=== PATIENT | male | born 1955 | race Caucasian/White ===

== ENCOUNTER 2016-08-27 09:27 | Emergency (ER) | payer OTHER ==
[2016-08-27] MEDS ORDERED: IPRATROPIUM/ALBUTEROL 0.5-2.5 MG/3 ML AMPUL NEB ONE (10:00)
[2016-08-27] MEDS ORDERED: NORMAL SALINE 1000 ML 1,000 ML IV ONE (10:04)
--- NOTE | 2016-08-27 10:07 | ER Document Report ---
ED Dizziness/Weakness - General Chief Complaint: General Weakness Stated Complaint: WEAKNESS Mode of Arrival: Medic Information source: Patient TRAVEL OUTSIDE OF THE U.S. IN LAST 30 DAYS: No - HPI Onset: Yesterday Associated symptoms: Diarrhea, Dizzy, Fainted, Lightheaded, Nausea, Recent fall , Recent trauma, Vomiting. denies: Chest pain, Confused, Ear pain, Headache, Hearing loss, Loss of motor function, Loss of strength, Loss of sensation, Palpitations, Paralysis, Ringing/roaring in ear, Short of breath Notes: Patient arrives with complaints of nausea vomiting diarrhea which started 3 days ago. States that he had fever and chills with this. On Saturday he had 2 syncopal episodes while going to the bathroom. On one of these episodes he fell and hit his right side/chest on the sink. He denies any head injury. He denies being on blood thinners. States that the nausea vomiting diarrhea have resolved, but he continues to feel generally weak and has pain to the right chest and right abdomen/flank. He denies any unilateral numbness tingling or weakness. He denies any headache. He denies any rash. The patient denies any history of A. fib. He has a history of COPD and hypertension. Patient is on amlodipine as well as inhalers. - Related Data Allergies/Adverse Reactions: erythromycin base Adverse Reaction (Verified 08/27/16 10:20) Horse/Equine Containing Products Adverse Reaction (Verified 08/27/16 09:48) Home Medications: Current Home Medications Albuterol Sulfate [Proventil Sr 4 mg Tablet] 4 mg PO Q12H 08/27/16 [History] Amlodipine Besylate 5 mg PO DAILY 08/27/16 [History] Fluticasone/Salmeterol [Advair 250-50 Diskus 14 Dose/Diskus] 1 inh IH Q12H 08/27 [History] Past Medical History - Social History Smoking Status: Unknown if Ever Smoked Family History: Reviewed & Not Pertinent Review of Systems - Review of Systems -: Yes All other systems reviewed and negative Physical Exam - Vital signs Vitals: Resp 20 08/27/16 09:45 - General General appearance: Appears well. No: Anxious, Lethargic, Unresponsive - HEENT Head: Normocephalic Eyes: Normal Extraocular movements intact: Yes Pupils: PERRL Ears: Normal Mucous membranes: Dry Neck: Normal - Respiratory Respiratory status: No respiratory distress Chest status: Tender - Right posterior chest wall. No crepitus, no full chest. Breath sounds: Wheezing. No: Rhonchi, Stridor - Cardiovascular Rhythm: Irregularly irregular, Tachycardia Heart sounds: Normal auscultation Murmur: No - Abdominal Distension: No distension Bowel sounds: Normal Notes: Patient is noted to have tenderness to palpation of the right upper quadrant and right flank. He is noted to have ecchymosis to this area. No crepitus. - Back Back: Normal - Extremities General upper extremity: Normal inspection, Nontender, Normal color, Normal ROM , Normal temperature General lower extremity: Normal inspection, Nontender, Normal color, Normal ROM , Normal temperature, Normal weight bearing. No: Renny's sign - Neurological Neuro grossly intact: Yes Cognition: Normal Orientation: AAOx4 [place] Coma Scale Eye Opening: Spontaneous [place] Coma Scale Verbal: Oriented [place] Coma Scale Motor: Obeys Commands [place] Coma Scale Total: 15 Speech: Normal Cranial nerves: Normal Motor strength normal: LUE, RUE, LLE, RLE Sensory: Normal - Psychological Associated symptoms: Normal affect, Normal mood - Skin Skin Temperature: Warm Skin Moisture: Dry Skin Color: Normal Course - Re-evaluation Re-evalutation: 08/27/16 12:24 Patient remained stable at this time. Patient did have an elevated white blood cell count as well as creatinine. Elevated creatinine is likely secondary to dehydration secondary to his nausea vomiting diarrhea. Patient had a syncopal episode 2 days ago and is now noted to have a potential pulmonary contusion to the right lung. This is the area with ecchymosis and tenderness. No rib fracture seen. CT of the abdomen and pelvis is unremarkable. I initially discussed the case with Dr. Strauss, the hospitalist here at [facility], he recommends transfer for trauma evaluation. I discussed the case with Dr. Downs at [facility], she accepts the patient as a transfer to their facility. Patient remains stable at this time. He is noted to still be in A. fib with a heart rate of 110. His blood pressure is stable at this time. Due to the potential pulmonary contusion, the patient was obviously not anticoagulated at this time. Patient was given IV fluids and pain medication in the ED and will be transferred for further evaluation and management. The patient is noted to have elevated blood pressure during today's emergency department visit. The patient was informed of this finding. The patient was instructed that this may be related to pre-hypertension and requires further evaluation with a primary care provider. The patient has no hypertensive symptoms at this time. - Vital Signs Vital signs: Temp Pulse Resp BP Pulse Ox 26 H 124/82 94 08/27/16 10:00 08/27/16 09:48 08/27/16 10:00 - Laboratory Result Diagrams: 08/27/16 09:55 08/27/16 09:55 Laboratory results interpreted by me: 08/27/16 08/27/16 08/27/16 09:55 09:55 09:55 WBC 18.8 H RDW 14.5 H Seg Neuts % (Manual) 83 H Band Neutrophils % 9 H Lymphocytes % (Manual) 3 L Abs Neuts (Manual) 17.3 H APTT 36.9 H Sodium 135.0 L Chloride 96 L BUN 30 H Creatinine 1.70 H Est GFR ( Amer) 50 L Est GFR (Non-Af Amer) 41 L Glucose 135 H Magnesium 2.6 H Direct Bilirubin 0.5 H Creatine Kinase 2004 H NT-Pro-B Natriuret Pep Total Protein 5.7 L Albumin 3.1 L 08/27/16 09:55 WBC RDW Seg Neuts % (Manual) Band Neutrophils % Lymphocytes % (Manual) Abs Neuts (Manual) APTT Sodium Chloride BUN Creatinine Est GFR ( Amer) Est GFR (Non-Af Amer) Glucose Magnesium Direct Bilirubin Creatine Kinase NT-Pro-B Natriuret Pep 5070 H Total Protein Albumin - Diagnostic Test Radiology reviewed: Image reviewed, Reports reviewed - Right sided pulmonary contusion - EKG Interpretation by Me EKG shows normal: ST-T Waves Rate: Tachycardia Rhythm: A.Fib, A.Flutter When compared to previous EKG there are: Previous EKG unavailable Discharge - Discharge Clinical Impression: Pulmonary contusion Qualifiers: Encounter type: initial encounter Laterality: right Qualified Code(s): S27.321A - Contusion of lung, unilateral, initial encounter A-fib Qualifiers: Atrial fibrillation type: unspecified Qualified Code(s): I48.91 - Unspecified atrial fibrillation Disposition: [facility]
[2016-08-27 10:29] LABS: HEMATOCRIT 42.3 % (37.9-51.0); HEMOGLOBIN 14.1 g/dL (13.5-17.0); MEAN CORPUSCULAR HEMOGLOBIN 30.9 pg (27.0-33.4); MEAN CORPUSCULAR HGB CONC 33.4 g/dL (32.0-36.0); MEAN CORPUSCULAR VOLUME 92 fl (80-97); RED BLOOD COUNT 4.58 10^6/uL (4.35-5.55); RED CELL DISTRIBUTION WIDTH 14.5 % (11.5-14.0); WHITE BLOOD COUNT 18.8 10^3/uL (4.0-10.5)
[2016-08-27 10:32] LABS: PROTHROMBIN TIME 15.2 SEC (11.4-15.4)
[2016-08-27 10:33] LABS: PARTIAL THROMBOPLASTIN TIME 36.9 SEC (23.5-35.8)
[2016-08-27 10:35] LABS: ALANINE AMINOTRANSFERASE 44 U/L (21-72); ALBUMIN 3.1 g/dL (3.5-5.0); ALKALINE PHOSPHATASE 102 U/L (38-126); ANION GAP 17 (5-19); ASPARTATE AMINO TRANSFERASE 59 U/L (17-59); BILIRUBIN,DIRECT 0.5 mg/dL (0.0-0.4); BILIRUBIN,TOTAL 1.2 mg/dL (0.2-1.3); BLOOD UREA NITROGEN 30 mg/dL (7-20); CALCIUM 8.5 mg/dL (8.4-10.2); CARBON DIOXIDE 22 mmol/L (22-30); CHLORIDE 96 mmol/L (98-107); GLUCOSE 135 mg/dL (75-110); MAGNESIUM 2.6 mg/dL (1.6-2.3); TOTAL PROTEIN 5.7 g/dL (6.3-8.2)
[2016-08-27 10:44] LABS: CREATINE KINASE 2004 U/L (55-170)
[2016-08-27 10:47] LABS: TROPONIN I 0.021 ng/mL
[2016-08-27 11:01] LABS: BAND NEUTROPHILS % (MANUAL) 9 % (3-5); BASOPHILS % (MANUAL) 0 % (0-2); EOSINOPHILS % (MANUAL) 0 % (0-6); LYMPHOCYTES % (MANUAL) 3 % (13-45); TOTAL CELLS COUNTED 100
[2016-08-27 11:03] LABS: ANISOCYTOSIS SLIGHT
[2016-08-27] MEDS ORDERED: MORPHINE SULFATE 10 MG/ML INJ IV ONE (11:48)
[2016-08-27] MEDS ORDERED: ONDANSETRON HCL INJ/PF 4 MG/2 ML SDV IV ONE (11:48)
--- NOTE | 2016-08-27 12:52 | EKG REPORT ---
SEVERITY:- ABNORMAL ECG - ATRIAL FIBRILLATION, V-RATE 96-158 CONSIDER ANTEROSEPTAL INFARCT : Confirmed by: Nara Goldman MD 27-Aug-2016 12:51:24
[2016-08-27 13:25] VITALS: BP 139/71
== END 2016-08-27 13:25 | disposition short-term general hospital (02) ==
LOC: ER 09:27
DX: S27.321A Contusion of lung, unilateral, initial encounter (principal); S30.1XXA Contusion of abdominal wall, initial encounter; Y93.89 Activity, other specified; W19.XXXA Unspecified fall, initial encounter; I48.91 Unspecified atrial fibrillation; I48.92 Unspecified atrial flutter; R55 Syncope and collapse; R50.9 Fever, unspecified; R53.1 Weakness; R10.9 Unspecified abdominal pain; R10.811 Right upper quadrant abdominal tenderness; R07.9 Chest pain, unspecified; R44.9 Unspecified symptoms and signs involving general sensations and perceptions; I10 Essential (primary) hypertension; R00.0 Tachycardia, unspecified; D72.829 Elevated white blood cell count, unspecified; Z79.899 Other long term (current) drug therapy
CPT/HCPCS: 93005; 94640; 99285; 96361; 96374; 96375; 36415; 82550; 83735; 84443; 85025; 85610; 85730; 80053; 84484; 83880; 71260; 74177; 93010; J2270; J2405; J7030; J7620

== ENCOUNTER 2016-09-09 15:26 | Emergency (ER) | payer OTHER ==
[2016-09-09] MEDS ORDERED: NORMAL SALINE 250 ML IV PRN ×2 (15:38→23:08)
[2016-09-09] MEDS ORDERED: NORMAL SALINE 1000 ML 1,000 ML IV ONE ×2 (15:38→23:07)
[2016-09-09 15:43] LABS: ABSOLUTE EOSINOPHILS # (AUTO) 0.2 10^3/uL (0.0-0.6); ABSOLUTE LYMPHOCYTES (AUTO) 2.3 10^3/uL (0.5-4.7); ABSOLUTE NEUT (AUTO) 5.9 10^3/uL (1.7-8.2); BASOPHILS % (AUTO) 0.4 % (0-2); EOSINOPHILS % (AUTO) 2.6 % (0-6); HEMATOCRIT 20.2 % (37.9-51.0); HGB HCT DIFFERENCE 0.2; LYMPHOCYTES % (AUTO) 24.4 % (13-45); MEAN CORPUSCULAR HEMOGLOBIN 31.5 pg (27.0-33.4); MEAN CORPUSCULAR HGB CONC 33.7 g/dL (32.0-36.0); MEAN CORPUSCULAR VOLUME 94 fl (80-97); MONOCYTES % (AUTO) 10.5 % (3-13); RED BLOOD COUNT 2.16 10^6/uL (4.35-5.55); RED CELL DISTRIBUTION WIDTH 14.5 % (11.5-14.0); SEGMENTED NEUTROPHILS % (AUTO) 62.1 % (42-78); WHITE BLOOD COUNT 9.4 10^3/uL (4.0-10.5)
[2016-09-09 15:46] LABS: HEMOGLOBIN 6.8 g/dL (13.5-17.0)
--- NOTE | 2016-09-09 15:48 | ER Document Report ---
ED Syncope and Near Syncope - General Stated Complaint: BLOOD IN STOOL Time Seen by Provider: 09/09/16 15:36 Mode of Arrival: Medic Information source: Patient, Relative, Emergency Med Personnel TRAVEL OUTSIDE OF THE U.S. IN LAST 30 DAYS: No - HPI Patient complains to provider of: Fainting Episode witnessed (by whom): Yes - @ CLINIC ([facility]) Single episoded occurred: JUST PRIOR TO E.D. Symptoms prior to episode: Back pain - RIGHT RIBS, Lightheaded, Other - BLOODY STOOLS Duration of preceeding symptoms: TODAY Position/Activity at time of episode: Sitting Context: Became unresponsive, Collapsed, Incontinent of stool Duration of LOC (min): 5?? Injury location: None Current symptoms: Chest pain, Lightheaded, Short of breath, Weakness Similar symptoms previously: No Recently seen / treated by doctor: Yes - HOSP. @ [facility] LAST WK, TREATED FOR PNEUMONIA - Related Data Allergies/Adverse Reactions: erythromycin base Adverse Reaction (Verified 08/27/16 10:20) Horse/Equine Containing Products Adverse Reaction (Verified 08/27/16 09:48) Past Medical History - General Information source: Patient, Relative - Social History Smoking Status: Former Smoker Frequency of alcohol use: None - NONE IN RECENT PAST Drug Abuse: None Lives with: Family Family History: Reviewed & Not Pertinent - Past Medical History Cardiac Medical History: Reports: Hx Hypertension Pulmonary Medical History: Reports: Hx COPD Review of Systems - Review of Systems Constitutional: Weakness EENT: No symptoms reported Cardiovascular: Chest pain Respiratory: See HPI Gastrointestinal: See HPI Genitourinary: No symptoms reported Musculoskeletal: No symptoms reported Skin: No symptoms reported Neurological/Psychological: See HPI, Lost consciousness Physical Exam - Vital signs Vitals: Resp Pulse Ox 26 H 96 09/09/16 15:33 09/09/16 15:33 Interpretation: Hypotensive. No: Tachycardic - General General appearance: Alert In distress: None - HEENT Head: Normocephalic Eyes: Pale conjunctiva Ears: Normal Nasal: Normal Mouth/Lips: Normal Mucous membranes: Normal Pharynx: Normal Neck: Normal - Respiratory Respiratory status: No respiratory distress Breath sounds: Normal - Cardiovascular Rhythm: Regular Heart sounds: Normal auscultation - HEART TONES DISTANT Murmur: No - Abdominal Inspection: Obese - Rectal Stool: Bloody - LIQIUD, BURGUNDY COLORED - Back Back: Normal - Extremities General upper extremity: No: Normal color - PALE General lower extremity: No: Normal color - PALE - Neurological Neuro grossly intact: Yes Cognition: Normal Orientation: AAOx4 - Psychological Associated symptoms: Normal affect, Normal mood - Skin Skin Temperature: Cool Skin Moisture: Dry Skin Color: Pale Skin Turgor: Elastic Course - Re-evaluation Re-evalutation: 09/10/16 00:56 Patient clinical status deteriorated during his stay in the department, while awaiting availability of bed for transfer. He experienced 2 more episodes of grossly bloody bowel movement, and during one of these his heart rhythm transitioned to atrial fibrillation with rapid ventricular response. Patient was begun on a diltiazem drip for rate control and transfusion of blood products was continued. Patient's blood pressure dropped to less than 90 systolic, and a phenylephrine IV drip was initiated for pressure support. Due to the urgency of his condition, his priority status was upgraded by the receiving facility and preparations were made for immediate transfer. At the time of transfer the patient was somewhat improved subjectively, and was stabilized as well as was reasonably possible. - Vital Signs Vital signs: Temp Pulse Resp BP Pulse Ox 98 F 20 128/72 H 100 09/09/16 21:24 09/10/16 01:01 09/10/16 00:55 09/10/16 00:16 - Laboratory Result Diagrams: 09/09/16 23:46 09/09/16 15:35 Laboratory results interpreted by me: 09/09/16 09/09/16 09/09/16 15:35 15:35 15:35 WBC RBC 2.16 L Hgb 6.8 L Hct 20.2 L RDW 14.5 H Plt Count 550 H Seg Neutrophils % Lymphocytes % Absolute Neutrophils BUN 27 H Glucose 133 H Calcium 7.7 L AST 16 L Total Protein 4.2 L Albumin 2.1 L Urine Ascorbic Acid Crossmatch See Detail 09/09/16 09/09/16 23:35 23:46 WBC 14.1 H RBC 1.90 L Hgb 6.0 L Hct 17.5 L RDW 14.7 H Plt Count Seg Neutrophils % 78.6 H Lymphocytes % 12.7 L Absolute Neutrophils 11.1 H BUN Glucose Calcium AST Total Protein Albumin Urine Ascorbic Acid 40 H Crossmatch - Diagnostic Test Radiology reviewed: Image reviewed, Reports reviewed - EKG Interpretation by Me EKG shows normal: Sinus rhythm, [place], Intervals, QRS Complexes, ST-T Waves Rate: Normal Rhythm: NSR Additional EKG results interpreted by me: 09/10/16 00:52 Repeat EKG results interpreted by me: New onset of atrial fibrillation with rapid ventricular response. Ventricular rate in the upper 140s. No QRS distortion or ST elevation. - Consults DR. PRIEST Time consulted: 16:25 Reason for consultation: 09/10/16 00:54 Agrees to accept patient for transfer, bed availability pending. DR. CLARK Time consulted: 23:26 Reason for consultation: 09/10/16 00:55 Agrees to upgrade the patient's priority status and expedite transfer. Critical Care Note - Critical Care Note Total time excluding time spent on procedures (mins): 120 Comments: Significant ongoing hemorrhage requiring aggressive resuscitation measures. Multiple organ system dysfunction. Unstable vital signs requiring multiple intravenous medications for stabilization. Discharge - Discharge Clinical Impression: Syncope and collapse, Hemorrhagic shock, Atrial fibrillation with rapid ventricular response Gastrointestinal bleeding Qualifiers: GI bleed type/associated pathology: unspecified gastrointestinal hemorrhage type Qualified Code(s): K92.2 - Gastrointestinal hemorrhage, unspecified Condition: Serious Disposition: [facility] Referrals: YOLI WHITTINGTON FNP [Primary Care Provider] - Follow up as needed
[2016-09-09 15:51] LABS: PROTHROMBIN TIME 14.8 SEC (11.4-15.4)
[2016-09-09 15:52] LABS: PARTIAL THROMBOPLASTIN TIME 27.6 SEC (23.5-35.8)
[2016-09-09 15:57] LABS: ALANINE AMINOTRANSFERASE 46 U/L (21-72); ALBUMIN 2.1 g/dL (3.5-5.0); ALKALINE PHOSPHATASE 58 U/L (38-126); ANION GAP 6 (5-19); ASPARTATE AMINO TRANSFERASE 16 U/L (17-59); BILIRUBIN,DIRECT 0.2 mg/dL (0.0-0.4); BILIRUBIN,TOTAL 0.2 mg/dL (0.2-1.3); BLOOD UREA NITROGEN 27 mg/dL (7-20); CALCIUM 7.7 mg/dL (8.4-10.2); CARBON DIOXIDE 28 mmol/L (22-30); CHLORIDE 103 mmol/L (98-107); GLUCOSE 133 mg/dL (75-110); POTASSIUM 4.8 mmol/L (3.6-5.0); SODIUM 137.4 mmol/L (137-145); TOTAL PROTEIN 4.2 g/dL (6.3-8.2)
[2016-09-09] MEDS ORDERED: PANTOPRAZOLE SODIUM 40 MG VIAL IV ONE (17:09)
[2016-09-09] MEDS ORDERED: OXYCODONE HCL IR 5 MG TABLET PO ONE ×2 (17:25→19:56)
--- NOTE | 2016-09-09 17:52 | EKG REPORT ---
SEVERITY:- BORDERLINE ECG - SINUS RHYTHM ATRIAL PREMATURE COMPLEX BORDERLINE R WAVE PROGRESSION, ANTERIOR LEADS : Confirmed by: Medhat Stoll MD 09-Sep-2016 17:51:48
[2016-09-09] MEDS ORDERED: NORMAL SALINE 1000 ML 500 ML IV ONE ×3 (21:13→22:20)
[2016-09-09] MEDS ORDERED: DILTIAZEM HCL/D5W 125 MG/125 ML RTUINJ IV ONE (23:23)
[2016-09-09] MEDS ORDERED: DILTIAZEM HCL INJ 25 MG/5 ML VIAL ONE (23:23)
[2016-09-09] MEDS ORDERED: DILTIAZEM HCL/D5W 125 ML IV PRN (23:28)
[2016-09-09] MEDS ORDERED: HYDROMORPHONE HCL INJ/PF 2 MG/ML AMPULE IV ONE (23:49)
[2016-09-10] MEDS ORDERED: PANTOPRAZOLE SODIUM 40 MG VIAL IV PRN (00:01)
[2016-09-10 00:05] LABS: ABSOLUTE BASOPHILS # (AUTO) 0.2 10^3/uL (0.0-0.2); ABSOLUTE EOSINOPHILS # (AUTO) 0.1 10^3/uL (0.0-0.6); ABSOLUTE LYMPHOCYTES (AUTO) 1.8 10^3/uL (0.5-4.7); ABSOLUTE NEUT (AUTO) 11.1 10^3/uL (1.7-8.2); BASOPHILS % (AUTO) 1.1 % (0-2); EOSINOPHILS % (AUTO) 0.5 % (0-6); HEMATOCRIT 17.5 % (37.9-51.0); HGB HCT DIFFERENCE 0.5; LYMPHOCYTES % (AUTO) 12.7 % (13-45); MEAN CORPUSCULAR HEMOGLOBIN 31.4 pg (27.0-33.4); MEAN CORPUSCULAR HGB CONC 34.1 g/dL (32.0-36.0); MEAN CORPUSCULAR VOLUME 92 fl (80-97); MONOCYTES % (AUTO) 7.1 % (3-13); RED CELL DISTRIBUTION WIDTH 14.7 % (11.5-14.0); SEGMENTED NEUTROPHILS % (AUTO) 78.6 % (42-78); WHITE BLOOD COUNT 14.1 10^3/uL (4.0-10.5)
[2016-09-10] MEDS ORDERED: DEXTROSE 5%-WATER 250 ML with PHENYLEPHRINE HCL 40 MG IV PRN ×2 (00:07)
[2016-09-10] MEDS ORDERED: NORMAL SALINE 250 ML IV PRN ×2 (00:15→00:51)
[2016-09-10 00:20] LABS: APPEARANCE,URINE SLIGHTLY-CLOUDY; BILIRUBIN,URINE NEGATIVE (NEGATIVE); GLUCOSE, URINE NEGATIVE (NEGATIVE); KETONES,URINE NEGATIVE (NEGATIVE); LEUKOCYTE ESTERASE,URINE NEGATIVE (NEGATIVE); NITRITE,URINE NEGATIVE (NEGATIVE); PROTEIN,URINE NEGATIVE (NEGATIVE); URINE SPECIFIC GRAVITY 1.012; UROBILINOGEN,URINE NEGATIVE mg/dL (<2.0)
[2016-09-10] MEDS ORDERED: PHENYLEPHRINE HCL INJ/PF 10 MG/1 ML SDV ONE (00:25)
[2016-09-10 02:10] VITALS: BP 127/78
== END 2016-09-10 01:00 | disposition short-term general hospital (02) ==
LOC: ER 15:26
DX: K92.2 Gastrointestinal hemorrhage, unspecified (principal); R57.8 Other shock; I48.91 Unspecified atrial fibrillation; R55 Syncope and collapse; R07.81 Pleurodynia; R15.9 Full incontinence of feces; R06.02 Shortness of breath; R53.1 Weakness; I10 Essential (primary) hypertension; J44.9 Chronic obstructive pulmonary disease, unspecified; I95.9 Hypotension, unspecified; R23.1 Pallor; Z87.891 Personal history of nicotine dependence
CPT/HCPCS: 93005; 99291; 99292; 96361; 96375; 96365; 96366; 86900; 86901; 36415; 36430; 86850; 85025; 85610; 85730; 82272; 80053; 81001; 86920; 71010; 93010; P9017; P9016; J1170; S0164; J7030

== ENCOUNTER → 2016-09-19 | Outpatient (CLI) | payer OTHER | LOC: RAD 12:25 | PROVIDERS: ATTEND Family Medicine | DX: J90 Pleural effusion, not elsewhere classified (principal); R06.02 Shortness of breath | CPT/HCPCS: 71020 ==

== ENCOUNTER → 2016-09-27 | Outpatient (CLI) | payer OTHER | LOC: RAD 12:18 | PROVIDERS: ATTEND Family Medicine | DX: J90 Pleural effusion, not elsewhere classified (principal) | CPT/HCPCS: 71020 ==

== ENCOUNTER → 2016-10-04 | Outpatient (CLI) | payer OTHER | LOC: RAD 12:02 | PROVIDERS: ATTEND Family Medicine | DX: J90 Pleural effusion, not elsewhere classified (principal) | CPT/HCPCS: 71020 ==

== ENCOUNTER → 2016-10-18 | Outpatient (CLI) | payer OTHER ==
--- NOTE | 2016-10-18 11:39 | RADIOLOGY REPORT (SQ) ---
EXAM DESCRIPTION: CHEST PA/LAT COMPLETED DATE/TIME: 10/18/2016 10:38 am REASON FOR STUDY: PLEURAL EFFUSION COMPARISON: 10/04/2016 EXAM PARAMETERS: NUMBER OF VIEWS: two views TECHNIQUE: Digital Frontal and Lateral radiographic views of the chest acquired. RADIATION DOSE: NA LIMITATIONS: none FINDINGS: LUNGS AND PLEURA: Moderate in size right-sided pleural effusion with adjacent atelectasis/ infiltrate. Similar prior study. The left lung is clear. No pneumothorax. MEDIASTINUM AND HILAR STRUCTURES: No masses or contour abnormalities. HEART AND VASCULAR STRUCTURES: Cardiac size is stable. No vascular dissection. BONES: No acute findings. HARDWARE: None in the chest. OTHER: No other significant finding. IMPRESSION: Moderate right-sided pleural effusion with associated atelectasis or infiltrate, not sig nificant change from prior study. TECHNICAL DOCUMENTATION: JOB ID: [id number] [employer]- All Rights Reserved
== END ==
LOC: RAD 10:13
PROVIDERS: ATTEND Family Medicine
DX: J90 Pleural effusion, not elsewhere classified (principal)
CPT/HCPCS: 71020

== ENCOUNTER 2017-03-21 06:22 | Day surgery (SDC) | payer BC, OTHER ==
[~2017-03-21 06:22] MED LIST: KETOROLAC TROMETHAMINE 0.45% 4 DROP/0.4 ML DROPERETTE OD PRN
[2017-03-21] MEDS ORDERED: MIDAZOLAM 2 MG/2 ML INJ ONE (06:47)
[2017-03-21] MEDS ORDERED: FENTANYL CITRATE INJ/PF 100 MCG/2 ML AMPUL ONE (06:47)
[2017-03-21] MEDS: CYCLOPENTOLATE 0.2%/PHENYLEPHRINE 1% OPH SOLN 2 ML OD PRN ×3 (06:54→07:19)
[2017-03-21] MEDS: TROPICAMIDE 1% OPH SOLN 3 ML OD PRN ×3 (06:54→07:19)
[2017-03-21] MEDS: BESIFLOXACIN HCL 0.6% OPH SUSP 5 ML BOTTLE OD PRN ×3 (06:55→07:58)
[2017-03-21] MEDS: TETRACAINE HCL 0.5% OPH SOLN 2 ML OD PRN ×3 (06:56→07:34)
[2017-03-21] MEDS ORDERED: LIDOCAINE 1% INJ-PF (10 MG/ML) 30 ML SDV ONE (07:07)
[2017-03-21] MEDS ORDERED: EPINEPHRINE INJ/PF 1 MG/1 ML AMPULE ONE (07:07)
[2017-03-21] MEDS ORDERED: CHONDR SU A NA/HYALUR INTRAOC KIT (SURGICARE) ONE (07:08)
--- NOTE | 2017-03-22 08:37 | [facility] OPERATIVE REPORT E ---
[facility] Operative Report NAME: GABI AREVALO AGE: 62Y DATE OF SURGERY: 03/22/2017 ROOM: PREOPERATIVE DIAGNOSIS: Cataract, right eye. POSTOPERATIVE DIAGNOSIS: Cataract, right eye. OPERATION: Cataract extraction with intraocular lens implant of the right eye. SURGEON: VETO MATHEWS M.D. ANESTHESIA: Topical. PROCEDURE: After obtaining appropriate consent, the patient's right eye was prepped and draped in sterile fashion as well as the surgeon in a sterile manner and cataract surgery was started. First a paracentesis blade was used to make a small side-port incision. Viscoelastic was used to inflate the anterior chamber. Next a 2.4 mm incision was made with the paracentesis blade. A continuous capsulorrhexis incision was made using a cystotome and Utrata forceps. Following this hydrodissection was carried out to make the lens fully loose and mobile and it was rotated 90 degrees. Following this, a qhhhvo-fpw-pxofnza technique was used to phacoemulsify the lens with a CDE of 7.63. The remaining cortex was removed with irrigation/aspiration. Provisc was instilled into the capsular bag to inflate the bag. A SN60WF, 17.5 diopter lens was placed. The remaining viscoelastic material was removed with irrigation/aspiration. Following this, a 10-0 nylon suture was used to close the incision and it was found to be watertight. Vigamox was instilled in the eye and a protective shield was placed over the eye. The patient returned to the postoperative recovery in stable condition. DICTATING PHYSICIAN: VETO MATHEWS M.D. [id number] PHY#: [id number] ID: [id number] JOB#: [id number] ACCT: [id number] cc:VETO MATHEWS M.D. >
--- NOTE | 2017-03-22 08:42 | [facility] DISCHARGE SUMMARY E ---
[facility] Discharge Summary NAME: GABI AREVALO AGE: 62Y ADMITTED: 03/21/2017 DISCHARGED: 03/21/2017 HISTORY OF PRESENT ILLNESS AND HOSPITAL COURSE: This is a 62-year-old male who underwent cataract extraction of the right eye. DIAGNOSIS: Cataract, right eye. HOSPITAL COURSE: He underwent surgery because he was having difficulty with central blurring of his vision, making it difficult for him to drive. DISCHARGE INSTRUCTIONS: 1. He should be on a regular diet. 2. No bending at the waist and no heavy lifting. 3. He should use his Besivance, Ilevro, and Durezol at 3 p.m. and 8 p.m. and sleep with a rigid shield. 4. I will see him for his one-day postoperative tomorrow. DICTATING PHYSICIAN: VETO MATHEWS M.D. [id number] PHY#: [id number] ID: [id number] JOB#: [id number] ACCT: [id number] cc:VETO MATHEWS M.D. >
== END 2017-03-21 08:42 | disposition home or self-care (01) ==
LOC: SC 06:22
PROVIDERS: ATTEND Internal Medicine
PROC: 08RJ3JZ Replacement of Right Lens with Synthetic Substitute, Percutaneous Approach (ICD-10-PCS; principal; 2017-03-21 07:30)
DX: H25.813 Combined forms of age-related cataract, bilateral (principal); H35.3132 Nonexudative age-related macular degeneration, bilateral, intermediate dry stage; H04.123 Dry eye syndrome of bilateral lacrimal glands; I10 Essential (primary) hypertension; J44.9 Chronic obstructive pulmonary disease, unspecified; K21.9 Gastro-esophageal reflux disease without esophagitis; Z87.891 Personal history of nicotine dependence; Z88.1 Allergy status to other antibiotic agents; Z79.51 Long term (current) use of inhaled steroids
CPT/HCPCS: 66984; V2632; J2250; J3490 ×2; J0171; J3010; 142

== ENCOUNTER 2018-10-07 13:29 | Emergency (ER) | payer BC, OTHER ==
[2018-10-07] MEDS ORDERED: ONDANSETRON 4 MG TAB.RAPDIS PO ONE (14:22)
--- NOTE | 2018-10-07 14:24 | ER Document Report ---
ED General - General Chief Complaint: Fainting Stated Complaint: ABDOMINAL PAIN Time Seen by Provider: 10/07/18 14:12 Primary Care Provider: RONAK BRADY MD [Primary Care Provider] - Follow up tomorrow ILDA HOLLIS MD [ACTIVE STAFF] - Follow up as needed Mode of Arrival: Medic Information source: Patient Notes: Patient presents emergency department after he passed out at [facility]. Patient reports for the past 2 months he has been having some nausea and twinges of pain to his right upper quad. He reports he went for evaluation today at [facility] and when he was checking and handing his insurance card over he became very sweaty and clammy and passed out. He denies chest pain shortness of breath. He denies fever vomiting diarrhea. Patient reports he feels fine now TRAVEL OUTSIDE OF THE [place].S[place] IN LAST 30 DAYS: No - HPI Onset: Other Onset/Duration: Sudden Quality of pain: No pain Associated symptoms: Nausea Exacerbated by: Denies Relieved by: Denies Similar symptoms previously: Yes Recently seen / treated by doctor: No - Related Data Allergies/Adverse Reactions: erythromycin base Allergy (Severe, Verified 03/14/17 12:52) Anaphylaxis Horse/Equine Containing Products Allergy (Severe, Verified 03/14/17 12:52) Anaphylaxis Past Medical History - General Information source: Patient - Social History Smoking Status: Current Every Day Smoker Cigarette use (# per day): Yes Frequency of alcohol use: None Drug Abuse: None Lives with: Family Family History: Reviewed & Not Pertinent Patient has suicidal ideation: No Patient has homicidal ideation: No - Past Medical History Cardiac Medical History: Reports: Hx Hypertension Denies: Hx Heart Attack Pulmonary Medical History: Reports: Hx Asthma, Hx COPD Neurological Medical History: Denies: Hx Cerebrovascular Accident, Hx Seizures Renal/ Medical History: Denies: Hx Peritoneal Dialysis Malignancy Medical History: Reports Hx Skin Cancer GI Medical History: Reports: Hx Ulcer - DUODENAL . Denies: Hx Hepatitis, Hx Hiatal Hernia Infectious Medical History: Denies: Hx Hepatitis Past Surgical History: Reports: Hx Orthopedic Surgery. Denies: Hx Open Heart Surgery, Hx Pacemaker Review of Systems - Review of Systems Notes: Review HPI for review of systems., All other systems negative Physical Exam - Vital signs Vitals: Resp BP Pulse Ox 12 144/74 H 95 10/07/18 13:46 10/07/18 13:46 10/07/18 13:46 - Notes Notes: PHYSICAL EXAMINATION: GENERAL: Well-appearing and in no acute distress HEAD: Atraumatic, normocephalic. EYES: Pupils equal round , extraocular movements intact, sclera anicteric, conjunctiva are normal. ENT: nares patent, Moist mucous membranes. NECK: Normal range of motion, supple without lymphadenopathy LUNGS: CTAB and equal. No wheezes rales or rhonchi. HEART: Regular rate and rhythm without murmurs ABDOMEN: Soft, RUQ tenderness. No guarding, no rebound EXTREMITIES: Normal range of motion, no pitting edema. NEUROLOGICAL: Cranial nerves grossly intact. Normal sensory/motor exams. PSYCH: Normal mood, normal affect. SKIN: Warm, Dry, normal turgor, no rashes or lesions noted Course - Re-evaluation Re-evalutation: 10/07/18 14:27 Recent instructed on plan of care to include labs ultrasound they verbalized understanding. Zofran prescribed. 10/07/18 18:45 Patient instructed on need for close to look at his liver. Patient was also instructed on his labs LFTs. Patient agrees to CT with IV contrast. Remains n.p.o. 10/07/18 20:15 Patient and family were instructed on results of CT. Metastatic liver cancer. He reports he just had a CT of the chest within the past 6 months and it was clear. Not sure about prostate exam PSA. Unsure of family history he was adopted. Patient was instructed on the importance on follow-up with [facility] tomorrow for further evaluation to include a PET scan. He verbalized understanding to all instructions. and daughter were in the room they were instructed on results. Emotional support given. Dictation of this chart was performed using voice recognition software; therefore, there may be some unintended grammatical errors. - Vital Signs Vital signs: Temp Pulse Resp BP Pulse Ox 98.5 F 87 19 148/67 H 95 10/07/18 20:00 10/07/18 13:48 10/07/18 19:54 10/07/18 19:54 10/07/18 19:54 - Laboratory Result Diagrams: 10/07/18 13:54 10/07/18 13:54 Laboratory results interpreted by me: 10/07/18 10/07/18 10/07/18 13:54 13:54 17:20 WBC 16.8 H RDW 14.3 H Seg Neutrophils % 86.5 H Lymphocytes % 6.2 L Absolute Neutrophils 14.6 H Sodium 136.2 L Carbon Dioxide 31 H Glucose 119 H AST 120 H ALT 178 H Alkaline Phosphatase 375 H Urine Ketones 20 H Urine Ascorbic Acid 40 H - Diagnostic Test Radiology reviewed: Image reviewed, Reports reviewed - CT without contrast shows probable metastatic disease in the liver IV contrasted study recommended. Also shows a small amount of PERIcholecystic fluid Discharge - Discharge Clinical Impression: Metastatic cancer to liver Abdominal pain Qualifiers: Abdominal location: right upper quadrant Qualified Code(s): R10.11 - Right upper quadrant pain Syncope Qualifiers: Syncope type: unspecified Qualified Code(s): R55 - Syncope and collapse Condition: Stable Disposition: HOME, SELF-CARE Additional Instructions: You have been evaluated for abdominal pain, syncope The CT scan showed metastatic liver cancer Please follow-up with your primary care provider tomorrow, take a copy of all labs and CT results. Return to the emergency department for concerns worsening condition changes or needs Forms: Elevated Blood Pressure Referrals: RONAK BRADY MD [Primary Care Provider] - Follow up tomorrow ILDA HOLLIS MD [ACTIVE STAFF] - Follow up as needed
[2018-10-07 14:56] LABS: ABSOLUTE BASOPHILS # (AUTO) 0.1 10^3/uL (0.0-0.2); ABSOLUTE EOSINOPHILS # (AUTO) 0.2 10^3/uL (0.0-0.6); ABSOLUTE NEUT (AUTO) 14.6 10^3/uL (1.7-8.2); BASOPHILS % (AUTO) 0.6 % (0-2); HEMATOCRIT 45.5 % (37.9-51.0); HEMOGLOBIN 15.2 g/dL (13.5-17.0); LYMPHOCYTES % (AUTO) 6.2 % (13-45); MEAN CORPUSCULAR HEMOGLOBIN 31.5 pg (27.0-33.4); MEAN CORPUSCULAR HGB CONC 33.3 g/dL (32.0-36.0); MEAN CORPUSCULAR VOLUME 95 fl (80-97); MONOCYTES % (AUTO) 5.7 % (3-13); PLATELET COUNT 389 10^3/uL (150-450); RED BLOOD COUNT 4.81 10^6/uL (4.35-5.55); RED CELL DISTRIBUTION WIDTH 14.3 % (11.5-14.0); SEGMENTED NEUTROPHILS % (AUTO) 86.5 % (42-78); TOTAL CELLS COUNTED % (AUTO) 100 %; WHITE BLOOD COUNT 16.8 10^3/uL (4.0-10.5)
[2018-10-07 15:11] LABS: ALANINE AMINOTRANSFERASE 178 U/L (21-72); ALBUMIN 3.5 g/dL (3.5-5.0); ALKALINE PHOSPHATASE 375 U/L (38-126); ANION GAP 7 (5-19); ASPARTATE AMINO TRANSFERASE 120 U/L (17-59); BILIRUBIN,DIRECT 0.4 mg/dL (0.0-0.4); BILIRUBIN,TOTAL 0.6 mg/dL (0.2-1.3); BLOOD UREA NITROGEN 13 mg/dL (7-20); CALCIUM 9.6 mg/dL (8.4-10.2); CARBON DIOXIDE 31 mmol/L (22-30); CHLORIDE 98 mmol/L (98-107); CREATINE KINASE 63 U/L (55-170); GLUCOSE 119 mg/dL (75-110); LIPASE 61.9 U/L (23-300); POTASSIUM 4.8 mmol/L (3.6-5.0); SODIUM 136.2 mmol/L (137-145); TOTAL PROTEIN 6.4 g/dL (6.3-8.2)
[2018-10-07] MEDS ORDERED: NORMAL SALINE 1000 ML 1,000 ML IV ONE (16:10)
[2018-10-07 17:39] LABS: APPEARANCE,URINE SLIGHTLY-CLOUDY; BILIRUBIN,URINE NEGATIVE (NEGATIVE); COLOR,URINE YELLOW; GLUCOSE, URINE NEGATIVE (NEGATIVE); KETONES,URINE 20 mg/dL (NEGATIVE); LEUKOCYTE ESTERASE,URINE NEGATIVE (NEGATIVE); NITRITE,URINE NEGATIVE (NEGATIVE); PROTEIN,URINE NEGATIVE (NEGATIVE); URINE SPECIFIC GRAVITY 1.011; UROBILINOGEN,URINE NEGATIVE mg/dL (<2.0)
--- NOTE | 2018-10-07 17:54 | RADIOLOGY REPORT (SQ) ---
EXAM DESCRIPTION: U/S ABDOMEN LIMITED W/O DOP COMPLETED DATE/TIME: 10/07/2018 5:29 pm REASON FOR STUDY: ruq abd pain COMPARISON: None. TECHNIQUE: Dynamic and static grayscale images acquired of the abdomen and recorded on PACS. Additio nal selected color Doppler and spectral images recorded. LIMITATIONS: None. FINDINGS: PANCREAS: Not seen. LIVER: The liver is somewhat heterogeneous. No definable mass is seen. LIVER VASCULATURE: Normal directional flow of the main portal vein and hepatic veins. GALLBLADDER: There is minimal pericholecystic fluid. No gallstones. ULTRASOUND-DETECTED JOSHI'S SIGN: Negative. INTRAHEPATIC DUCTS AND COMMON DUCT: Common bile duct is borderline at 7 mm. No significant intrahepa tic ductal dilatation is seen. INFERIOR VENA CAVA: Not imaged. AORTA: No aneurysm. RIGHT KIDNEY: Normal size, 9.7 cm. . Normal echogenicity. No solid or suspicious masses. No hydrone phrosis. No calcifications. PERITONEAL AND RIGHT PLEURAL SPACE: No ascites or effusions. OTHER: No other significant findings. IMPRESSION: 1. The liver is somewhat heterogeneous. No definable mass. Possible focal fatty infil tration. Consider CT without with contrast. 2. Minimal pericholecystic fluid. The overall appearance of the gallbladder does not suggest cholec ystitis. 3. Borderline common bile duct. Correlate for biliary obstruction. TECHNICAL DOCUMENTATION: JOB ID: [id number] [employer]- All Rights Reserved Reading location - IP/workstation name: [email or web address]
--- NOTE | 2018-10-07 18:19 | RADIOLOGY REPORT (SQ) ---
EXAM DESCRIPTION: CT ABD/PELVIS NO ORAL OR IV COMPLETED DATE/TIME: 10/07/2018 6:08 pm REASON FOR STUDY: abd pain COMPARISON: 08/27/2016 TECHNIQUE: CT scan of the abdomen and pelvis performed without intravenous or oral contrast. Images reviewed with lung, soft tissue, and bone windows. Reconstructed coronal and sagittal MPR images revi ewed. All images stored on PACS. All CT scanners at this facility use dose modulation, iterative reconstruction, and/or weight based d osing when appropriate to reduce radiation dose to as low as reasonably achievable (ALARA). [facility]: Dose Right [facility]: CareDose [facility]: Dose Right [facility]: Teradose 4D [facility]: [employer] RADIATION DOSE: mGy. LIMITATIONS: None. FINDINGS: LOWER CHEST: There is a small hiatal hernia. Lung bases are clear. NON-CONTRASTED LIVER, SPLEEN, ADRENALS: There are multiple hepatic lesions. Metastatic disease canno t be excluded. Recommend contrasted study for further evaluation. PANCREAS: No masses. No peripancreatic inflammatory changes. GALLBLADDER: No stones. There is a small amount of pericholecystic fluid as demonstrated on ultrasou nd. RIGHT KIDNEY AND URETER: No suspicious masses. Assessment limited by lack of IV contrast. No signif icant calcifications. No hydronephrosis or hydroureter. LEFT KIDNEY AND URETER: No suspicious masses. Assessment limited by lack of IV contrast. No signifi cant calcifications. No hydronephrosis or hydroureter. AORTA AND RETROPERITONEUM: No aneurysm. No retroperitoneal masses or adenopathy. BOWEL AND PERITONEAL CAVITY: No obvious masses or inflammatory changes. No free fluid. APPENDIX: Normal. PELVIS, BLADDER, AND ABDOMINAL WALL:No abnormal masses. No free fluid. Bladder normal. BONES: No significant findings. OTHER: No other significant finding. IMPRESSION: 1. Probable metastatic disease in the liver recommended contrasted study for further esvin luation. 2. Small amount of pericholecystic fluid. COMMENT: Quality ID # 436: Final reports with documentation of one or more dose reduction techniques (e.g., Automated exposure control, adjustment of the mA and/or kV according to patient size, use of iterative reconstruction technique) TECHNICAL DOCUMENTATION: JOB ID: [id number] [employer]- All Rights Reserved Reading location - IP/workstation name: [email or web address]
--- NOTE | 2018-10-07 19:41 | RADIOLOGY REPORT (SQ) ---
EXAM DESCRIPTION: CT ABD/PELVIS WITH IV ONLY COMPLETED DATE/TIME: 10/07/2018 7:12 pm REASON FOR STUDY: ? METASTATIC DISEASE COMPARISON: 08/27/2016 TECHNIQUE: CT scan of the abdomen and pelvis performed using helical scanning technique with dynamic intravenous contrast injection. No oral contrast. Images reviewed with lung, soft tissue, and bone windows. Reconstructed coronal and sagittal MPR images reviewed. Delayed images for evaluation of the urinary system also acquired. All images stored on PACS. All CT scanners at this facility use dose modulation, iterative reconstruction, and/or weight based d osing when appropriate to reduce radiation dose to as low as reasonably achievable (ALARA). [facility]: Dose Right [facility]: CareDose [facility]: Dose Right [facility]: Teradose 4D [facility]: [employer] CONTRAST TYPE AND DOSE: contrast/concentration: Isovue 350.00 mg/ml; Total Contrast Delivered: 65.1 ml; Total Saline Delivered: 22.0 ml RENAL FUNCTION: BUN 13 creatinine 1.17 RADIATION DOSE: CT Rad equipment meets quality standard of care and radiation dose reduction techniq ues were employed. CTDIvol: 20.2 - 21.1 mGy. DLP: 2255 mGy-cm.. LIMITATIONS: None. FINDINGS: LOWER CHEST: No significant findings. No nodules or infiltrates. LIVER: The liver is markedly heterogeneous with hypoattenuating lesions that are too numerous to coun t. SPLEEN: Normal size. No focal lesions. PANCREAS: No masses. No significant calcifications. No adjacent inflammation or peripancreatic fluid collections. Pancreatic duct not dilated. GALLBLADDER: No identified stones by CT criteria. No inflammatory changes to suggest cholecystitis. ADRENAL GLANDS: No significant masses or asymmetry. RIGHT KIDNEY AND URETER: No solid masses. No significant calcifications. No hydronephrosis or hyd roureter. LEFT KIDNEY AND URETER: No solid masses. No significant calcifications. No hydronephrosis or hydr oureter. AORTA AND VESSELS: No aneurysm. No dissection. Renal arteries, SMA, celiac without stenosis. RETROPERITONEUM: No retroperitoneal adenopathy, hemorrhage or masses. BOWEL AND PERITONEAL CAVITY: No masses or inflammatory changes. No free fluid or peritoneal masses. APPENDIX: Normal. PELVIS: No mass. No free fluid. Normal bladder. ABDOMINAL WALL: No masses. No hernias. BONES: Degenerative joint disease in the left hip. No osseous metastases. OTHER: No other significant finding. IMPRESSION: Extensive metastatic disease in the liver. Findings as described. TECHNICAL DOCUMENTATION: JOB ID: [id number] Quality ID # [id number]: Final reports with documentation of one or more dose reduction techniques (e.g., Au tomated exposure control, adjustment of the mA and/or kV according to patient size, use of iterative reconstruction technique) 2010 [employer]- All Rights Reserved Reading location - IP/workstation name: [email or web address]
[2018-10-07 19:57] VITALS: BP 148/67
== END 2018-10-07 20:20 | disposition home or self-care (01) ==
LOC: ER 13:29
DX: C22.0 Liver cell carcinoma (principal); R10.11 Right upper quadrant pain; R55 Syncope and collapse; R10.9 Unspecified abdominal pain; R11.0 Nausea; F17.210 Nicotine dependence, cigarettes, uncomplicated; I10 Essential (primary) hypertension; J44.9 Chronic obstructive pulmonary disease, unspecified
CPT/HCPCS: 99284; 96360; 96361; 36415; 82550; 83690; 85025; 80053; 81001; 84484; 76705; 74176; 74177; A9270; J7030; S0119

== ENCOUNTER → 2018-10-14 | Outpatient (CLI) | payer OTHER ==
--- NOTE | 2018-10-15 10:28 | RADIOLOGY REPORT (SQ) ---
EXAM DESCRIPTION: PET CT SKULL/THIGH COMPLETED DATE/TIME: 10/15/2018 7:43 am REASON FOR STUDY: D49.0 NEOPLASM OF UNSPECIFIED BEHAVIOR OF DIGESTIVE SYSTEM D49.0 NEOPLASM OF UNSP ECIFIED BEHAVIOR OF DIGESTIVE SYSTEM COMPARISON: CT chest dated 08/27/2016, CT abdomen and pelvis dated 10/07/2018 RADIONUCLIDE AND DOSE: 11.2 mCi F18 FDG The route of agent administration: Intravenous FASTING BLOOD SUGAR: 89 mg/dl CONTRAST TYPE AND DOSE: No CT contrast given. TECHNIQUE: Blood glucose level was verified. Above dose of FDG was injected intravenously. 2-D seg mented attenuation correction images were obtained from the base of the skull to the midthighs. Nonc ontrast CT images were obtained for attenuation correction and fusion with emission images. CT image s were performed without oral or intravenous contrast and are not sensitive for parenchymal lesions. A series of overlapping emission PET images were obtained. Images reviewed and manipulated at [facility] [employer] work station by the radiologist. Images stored on PACS. LIMITATIONS: None. FINDINGS: HEAD AND NECK: There is just over 1 cm right supraclavicular lymph node. SUV is just unde r 4 suspicious for metastatic disease. CHEST: There are areas of airspace disease throughout the right upper lobe. These demonstrate increa sed metabolic activity consistent with metastatic disease. There is a right hilar mass with an SUV o f 19 consistent with neoplasm. There is a pericardial lymph node with an SUV of greater than 15 cons istent with neoplasm. ABDOMEN AND PELVIS: There is widespread metastatic disease throughout the liver. PROXIMAL LOWER EXTREMITIES: No areas of abnormal metabolic activity in the soft tissues of the lower extremities. BONES: No abnormal metabolic activity in the visualized skeleton. ADDITIONAL CT FINDINGS: No additional significant findings on the noncontrast CT images. OTHER: No other significant findings. IMPRESSION: 1. Right hilar mass with an SUV of greater than 15 consistent with neoplasm. There is a bnormal uptake throughout the diffuse right-sided airspace disease and a right pericardial lymph node . 2. Single right supraclavicular lymph node with an SUV of just under 4 consistent with metastatic di sease. 3. Widespread metastatic disease throughout the liver. TECHNICAL DOCUMENTATION: JOB ID: [id number] [employer]- All Rights Reserved Reading location - IP/workstation name: [email or web address]
== END ==
LOC: RAD 16:28
PROVIDERS: ATTEND Nurse Practitioner
DX: C78.7 Secondary malignant neoplasm of liver and intrahepatic bile duct (principal)
CPT/HCPCS: 78815; A9552

== ENCOUNTER 2018-10-22 08:30 | Day surgery (SDC) | payer OTHER ==
[2018-10-22 09:47] LABS: HEMATOCRIT 44.3 % (37.9-51.0); HEMOGLOBIN 14.8 g/dL (13.5-17.0); MEAN CORPUSCULAR HEMOGLOBIN 30.9 pg (27.0-33.4); MEAN CORPUSCULAR HGB CONC 33.3 g/dL (32.0-36.0); MEAN CORPUSCULAR VOLUME 93 fl (80-97); PLATELET COUNT 484 10^3/uL (150-450); RED BLOOD COUNT 4.78 10^6/uL (4.35-5.55); WHITE BLOOD COUNT 11.8 10^3/uL (4.0-10.5)
[2018-10-22 09:52] LABS: INTERNATIONAL RATION (INR) 1.06; PROTHROMBIN TIME 14.4 SEC (11.4-15.4)
[2018-10-22 09:53] LABS: PARTIAL THROMBOPLASTIN TIME 34.4 SEC (23.5-35.8)
[2018-10-22 10:03] LABS: BLOOD UREA NITROGEN 10 mg/dL (7-20)
[2018-10-22] MEDS ORDERED: MIDAZOLAM 2 MG/2 ML INJ ONE (11:08)
[2018-10-22] MEDS ORDERED: FENTANYL CITRATE INJ/PF 100 MCG/2 ML AMPUL ONE (11:08)
--- NOTE | 2018-10-22 12:33 | RADIOLOGY REPORT (SQ) ---
EXAM DESCRIPTION: CT BIOPSY LIVER; CT NEEDLE PLACEMENT COMPLETED DATE/TIME: 10/22/2018 11:54 am REASON FOR STUDY: MALIGNANT NEOPLASM OF LIVER C22.9 MALIG NEOPLASM OF LIVER, NOT SPECIFIED PRIMA RY OR S COMPARISON: 10/07/2018 TECHNIQUE: After obtaining informed consent and explaining the risks and benefits of conscious sedat ion,the patient agreed to the procedure. The patient was brought to the CT suite and was placed supin e on the CT gurney. The patient was prepped and draped in the usual sterile fashion. Axial images we re obtained for targeting of thepreviously seen hypodense hypermetabolic areas within the right hepat ic lobe. An appropriate access site was selected. Patient tolerated the procedure with local sedatio n. Documentation face to face time, the performing proceduralist, spent monitoring the patient: [address] of the liver was performed to localize an approach for the right hepatic lobe liver biopsy. A percutaneous site was marked. Time out was performed. After skin prep and local lidocaine for skin and deep tissue anesthesia, a coaxial biopsy needle sys tem was used to obtain several cores of tissue from the right hepatic lobe. These were submitted to the lab in formalin. No immediate postprocedure complications. Total of 11.[address] fluoro was used. 3 CT Fluoroscopic images were obtained and saved to PACS. All CT scanners at this facility use dose modulation, iterative reconstruction, and/or weight based d osing when appropriate to reduce radiation dose to as low as reasonably achievable (ALARA). [facility]: Dose Right [facility]: CareDose [facility]: Dose Right [facility]: Teradose 4D [facility]: [employer] RADIATION DOSE: CT Rad equipment meets quality standard of care and radiation dose reduction techniq ues were employed. CTDIvol: 6.6 - 20.3 mGy. DLP: 679 mGy-cm. mGy. LIMITATIONS: Streak artifact from patient inability to raise arms. FINDINGS: CT guided liver biopsy as detailed above. IMPRESSION: CT FLUOROSCOPY GUIDED RIGHT HEPATIC LOBE BIOPSY PERFORMED ABOVE. PATHOLOGY PENDING. NO IMMEDIATE COMPLICATIONS. COMMENT: Patient medication list reviewed:Yes- Quality ID# [id number]:Eligible professional attests to docu menting in the medical record they obtained, updated, or reviewed the patient's current medications.. Quality ID 145: Final reports for procedures using fluoroscopy that document radiation exposure joie dede, or exposure time and number of fluorographic images (if radiation exposure indices are not avail able) TECHNICAL DOCUMENTATION: JOB ID: [id number] Quality ID # [id number]: Final reports with documentation of one or more dose reduction techniques (e.g., A utomated exposure control, adjustment of the mA and/or kV according to patient size, use of iterative reconstruction technique) 2010 [employer]- All Rights Reserved Reading location - IP/workstation name: [email or web address]
[2018-10-22 13:37] VITALS: BP 164/98
== END 2018-10-22 13:50 | disposition home or self-care (01) ==
LOC: RAD 08:30
PROVIDERS: ATTEND Internal Medicine
DX: C22.9 Malignant neoplasm of liver, not specified as primary or secondary (principal)
CPT/HCPCS: 36415; 84520; 82565; 85027; 85610; 85730; 88342 ×2; 88341 ×2; 88305 ×2; 88313 ×2; 77012; 47000; J3010; J2250

== ENCOUNTER → 2018-11-03 | Outpatient (CLI) | payer OTHER ==
--- NOTE | 2018-11-03 14:36 | RADIOLOGY REPORT (SQ) ---
EXAM DESCRIPTION: MRI HEAD COMBO COMPLETED DATE/TIME: 11/03/2018 2:04 pm REASON FOR STUDY: C34.11 MALIGNANT NEOPLASM OF UPPER LOBE, RIGHT BRONCHUS OR LUNG C34.11 MALIGNANT NEOPLASM OF UPPER LOBE, RIGHT BRONCHUS OR L COMPARISON: None. TECHNIQUE: Multiplanar imaging includes noncontrasted T1, T2, FLAIR, Diffusion with ADC map and post gadolinium contrast T1 sequences. Images stored on PACS. CONTRAST TYPE AND DOSE: 20 mL [employer] RENAL FUNCTION: Not indicated. ACR Type II contrast agent associated with few, if any, unconfounded cases of NSF LIMITATIONS: None. FINDINGS: ANATOMY: No anomalies. Normal vascular flow voids. Pituitary fossa normal. CSF SPACES: Atrophy-induced prominence of CSF spaces and ventricles. CEREBRUM: High-signal intensity lesions scattered throughout the white matter on FLAIR imaging with d istribution suggesting chronic micro-vascular ischemic change. No evidence of hemorrhage, mass, extra axial fluid collection or acute ischemic change. No enhancing lesions. POSTERIOR FOSSA: No signal alteration. No hemorrhage. No edema, masses, or mass effect. Internal henna tory canals, cerebello-pontine angles, mastoids normal. No enhancing lesions. ORBITS: No masses. Globes normal. PARANASAL SINUSES: Mucosal nodules/cysts in the sphenoid sinus and right maxillary sinus. DIFFUSION: Normal. No evidence of recent infarct. OTHER: No other significant finding. IMPRESSION: ATROPHY AND CHRONIC MICRO-VASCULAR ISCHEMIC CHANGES. SINUS DISEASE. OTHERWISE UNREMARK ABLE MRI OF THE BRAIN WITHOUT AND WITH INTRAVENOUS GADOLINIUM CONTRAST. NO EVIDENCE OF METASTATIC IN VOLVEMENT. EVIDENCE OF ACUTE STROKE: NO. TECHNICAL DOCUMENTATION: JOB ID: [id number] [employer]: [employer]- All Rights Reserved Reading location - IP/workstation name: [email or web address]
== END ==
LOC: RAD 13:08
PROVIDERS: ATTEND Internal Medicine
DX: C34.11 Malignant neoplasm of upper lobe, right bronchus or lung (principal)
CPT/HCPCS: 70553; A9576